=== PATIENT | female | born 1975 | race Asian ===

== ENCOUNTER 2023-03-17 12:59 | Outpatient (RCR) | payer OTHER, SELFPAY ==
[2023-03-17 13:17] VITALS: BMI 28.8
[2023-03-17 14:02] VITALS: BMI 28.8
== END 2023-06-01 10:49 | disposition home or self-care (01) ==
LOC: ANHDMC 12:59
PROVIDERS: PCP Family Medicine; Visit Provider Family Medicine
DX: E11.9 Type 2 diabetes mellitus without complications (principal); Z71.3 Dietary counseling and surveillance
CPT/HCPCS: 97802